=== PATIENT | female | born 1965 | race Caucasian/White ===

== ENCOUNTER → 2016-09-27 | Outpatient (CLI) | payer OTHER, BC ==
[~2016-09-27] MED LIST: BENICAR HCT; BENICAR HCT 20-1 TA1 PO; LEVAQUIN PO; LIPITOR PO; PHENTERMINE PO; PRILOSEC PO; PROTONIX PO; SYNTHROID PO; TRICOR PO
--- NOTE | ~2016-09-27 | CR97 ---
[facility] A Service of [facility] & [facility] RADIOLOGY TEXT RESULTS PATIENT: ISAÍAS SALAS LOCATION: [facility] : 67 UNIT #: [id number] AGE: [address]: Fredo Merrill III, MD SEX: F ORDER DR: [id number] [facility] [address] [place], [place] [address] [id number] O MR#: [id number] Acc #: [id number] NAME: ISAÍAS SALAS : 1965 SEX: F STUDY DATE/TIME: 09/27/2016 9:32 UNIT: [facility] ROOM: STUDY DESCRIPTION: CR Esophagram Attending Physician: Fredo Merrill III, M.D. Referring Physician: Fredo Merrill III, M.D. Ordering Physician: Fredo Merrill III, M.D. Primary Care Physician: Sofiya oMjica M.D. MEDICAL IMAGING REPORT This report is preliminary unless electronic signature is present EXAM Esophagram 09/27/2016 INDICATION History of gastric band placement. Patient reports nausea and reflux for 1 week. Possible slippage of gastric band which was placed in 2008. FINDINGS Single contrast esophagram was performed. Fluoro time is 1.8 minutes. 31 images were obtained including a rim fire priming operator view. Comparison is made with a radiograph from 01/15/2010. The rim fire priming operator view shows a gastric band in place. The phi angle on the rim fire priming operator view is only 15 degrees where it was previously 54 degrees. However, its cranial-caudal location is not significantly changed. The esophagus does appear normal other than a few tertiary contractions distally. On the fluoroscopic images, the gastric band appears well positioned. There is a small gastric pouch above the band as expected. However, transit through the band is limited and the lumen through the band is fairly tight. This results in persistent contrast in the distal esophagus and small gastric pouch, even with the patient in the upright position. IMPRESSION The gastric band does not appear to be slipped at this time, but the lumen is very tight limiting flow of barium through the band. This results in pooling in the small gastric pouch above the band as well as in the distal half of the esophagus. Dictated by... Wilfrid Vaughn Jr., M.D. THIS IS AN ELECTRONICALLY VERIFIED REPORT Wilfrid Vaughn Jr., M.D. at 09/27/2016 4:52 PM [facility] A Service of [facility] RADIOLOGY TEXT RESULTS PATIENT: ISAÍAS SALAS LOCATION: [facility] : 67 UNIT #: [id number] AGE: [address]: Fredo Merrill III, MD SEX: F ORDER DR: JUAN CARLOS/princess TD: 09/27/2016 12:30 JOB #: [id number] MEDICAL IMAGING REPORT COPY
== END | disposition home or self-care (01) ==
LOC: CRAD 08:47
DX: R13.10 Dysphagia, unspecified (principal); Z98.84 Bariatric surgery status
CPT/HCPCS: 74220